=== PATIENT | female | born 1970 | race African-American/Black ===

== ENCOUNTER 2024-01-08 03:23 | Emergency (ER) | payer OTHER, SELFPAY ==
[2024-01-08] MEDS ORDERED: Dexamethasone 10 MG/ML VIAL ONE (03:46)
[2024-01-08] MEDS ORDERED: Morphine 4 MG/ML VIAL ONE (03:46)
[2024-01-08] MEDS ORDERED: Ketorolac Tromethamine 30 MG (1 mL) VIAL ONE (03:46)
[2024-01-08] MEDS ORDERED: Morphine 2 MG/ML VIAL ONE (03:47)
== END 2024-01-08 05:38 | disposition home or self-care (01) ==
LOC: CSHERS 03:23
DX: M54.41 Lumbago with sciatica, right side (principal); Z75.3 Unavailability and inaccessibility of health-care facilities
CPT/HCPCS: 96372; 96374; J1100; J1885; J2270; J2272

== ENCOUNTER 2024-05-30 19:40 | Emergency (ER) | payer OTHER ==
[2024-05-30] MEDS ORDERED: Ketorolac Tromethamine 30 MG (1 mL) VIAL ONE (20:12)
== END 2024-05-30 21:47 | disposition home or self-care (01) ==
LOC: CSHERS 19:40
DX: M25.561 Pain in right knee (principal); Z55.0 Illiteracy and low-level literacy
CPT/HCPCS: 96372; 99283; J1885

== ENCOUNTER 2025-06-21 10:58 | Outpatient (CLI) | payer OTHER | END 2025-06-21 10:59 | disposition home or self-care (01) | LOC: CSHRAD 10:58 | PROVIDERS: ATTEND Family Medicine | DX: M51.369 Other intervertebral disc degeneration, lumbar region without mention of lumbar back pain or lower extremity pain (principal) | CPT/HCPCS: 72110 ==